=== PATIENT | male | born 1980 | race African-American/Black ===

== ENCOUNTER 2017-05-27 12:56 | Emergency (ER) | payer MEDICAID ==
[2017-05-27] MEDS: DEXAMETHASONE 10 MG/ML 1 ML INJ IM (14:17)
== END 2017-05-27 15:04 | disposition home or self-care (01) ==
LOC: FTE 12:56
DX: K12.2 Cellulitis and abscess of mouth (principal)
CPT/HCPCS: 96372; 99284-25